=== PATIENT | female | born 2000 | race African-American/Black ===

== ENCOUNTER 2022-11-19 14:01 | Emergency (ER) | payer OTHER, SELFPAY ==
--- NOTE | ~2022-11-19 | XR_ITS ---
EXAMINATION: XR CHEST CLINICAL INFORMATION: Chest pain. COMPARISON: None TECHNIQUE: Frontal view of the chest was obtained. FINDINGS: No significant abnormality is noted involving the heart, lungs, mediastinum, bony thorax or soft tissues. XR/XR chest 1V IMPRESSION: Unremarkable examination.
--- NOTE | 2022-11-19 14:08 | ECG_ITS ---
Test Reason : CX PAIN Blood Pressure : / mmHG Vent. Rate : 067 BPM Atrial Rate : 067 BPM P-R Int : 186 ms QRS Dur : 086 ms QT Int : 376 ms P-R-T Axes : 061 079 045 degrees QTc Int : 397 ms Sinus rhythm with marked sinus arrhythmia Otherwise normal ECG No previous ECGs available Referred By: Generic ED Physician Electronically Signed By:CAROLE HICKS
[2022-11-19 16:23] VITALS: BP 116/66; PULSE 62; RESP 18; TEMP 37.1; O2SAT 100; BMI 27.4
--- NOTE | 2022-11-19 16:35 | ED.GENADULT ---
HPI - General Adult General Source: patient <Rito Peraza MD - Last Filed: 11/20/22 06:43> Mode of arrival: ambulatory <Rito Peraza MD - Last Filed: 11/20/22 06:43> Limitations: no limitations <Rito Peraza MD - Last Filed: 11/20/22 06:43> History of Present Illness HPI narrative: Patient otherwise healthy complaining of pain in R 2nd inter costal space since today afternoon increases on palpation and take deep breath no cough or shortness of breath no history of similar pain in the past <Rito Peraza MD - Last Filed: 11/20/22 06:43> Related Data Home medications: Previous Rx's Medication Instructions Recorded ibuprofen 600 mg tablet 600 mg PO Q6H PRN fever or pain 11/19/22 #30 tabs <MINESH Ridley - Last Filed: 11/23/22 20:43> Allergies/adverse reactions: Allergies Allergy/AdvReac Type Severity Reaction Status Date / Time kiwi [KIWI] Allergy Severe ANAPHYLAXIS Unverified 08/01/20 18:58 apple Allergy Anaphylaxis Verified 11/19/22 16:27 <MINESH Ridley - Last Filed: 11/23/22 20:43> Review of Systems Review of Systems: Yes all other systems are reviewed and are negative <Rito Peraza MD - Last Filed: 11/20/22 06:43> [facility] Social History Social History: Social History Advance Directives: No <MINESH Ridley - Last Filed: 11/23/22 20:43> Physical Exam ED Vital Signs: Vital Signs - 24 hr 11/19/22 16:23 11/19/22 19:56 Temperature 98.7 F 98.2 F Pulse Rate 62 70 Respiratory Rate 18 16 Blood Pressure 116/66 113/78 Pulse Oximetry 100 98 Oxygen Delivery Method Room Air Room Air BMI result Body Mass Index 27.4 <MINESH Ridley - Last Filed: 11/23/22 20:43> Vital Signs - 24 hr 11/19/22 16:23 11/19/22 19:56 Temperature 98.7 F 98.2 F Pulse Rate 62 70 Respiratory Rate 18 16 Blood Pressure 116/66 113/78 Pulse Oximetry 100 98 Oxygen Delivery Method Room Air Room Air BMI result Body Mass Index 27.4 <Rito Peraza MD - Last Filed: 11/20/22 06:43> Appearance: Alert. Oriented X3. No acute distress. Eyes: PERRLA, No Nystagmus ENT: Pharynx normal. Oral Mucosa moist Neck: Normal inspection. Neck supple. CVS: Normal heart rate and rhythm. Pulses normal. Respiratory: No respiratory distress. Equal air entry bilateral, no wheezing/rales/rhonchi tender to touch right intercostal space Abdomen: Soft and nontender. Bowel sounds are present, Skin: Skin warm and dry. Normal skin color. Normal skin turgor. Extremities: No lower extremity edema. No calf tenderness Neuro: Oriented X 3. <Rito Peraza MD - Last Filed: 11/20/22 06:43> Course Course Course Narrative: 22-year-old female with no significant medical history is here today for complaining of chest pain. Patient states that she was walking around at work and started to feeling shortness of breath and then chest pain. Patient denies any cold symptoms. Patient states that she suffers from panic attacks. Patient is on sure that this was a panic attack or not. Currently patient does not feel short of breath, however she reports to have reproducible chest pain and reproducible back pain. Patient denies any injuries denies any sickness . Will obtain chest x-ray. EKG was done in triage and it was normal. Patient is hemodynamically stable and will be sent to emergency department waiting room to wait for chest x-ray <MINESH Ridley - Last Filed: 11/23/22 20:43> Medications Administered Discontinued Medications Generic Name Dose Route Start Last Admin Trade Name Freq PRN Reason Stop Dose Admin Ibuprofen 600 mg 11/19/22 21:55 11/19/22 22:27 Ibuprofen 600 Mg Tablet PO 11/19/22 21:56 600 mg ONCE ONE Administration <MINESH Ridley - Last Filed: 11/23/22 20:43> Medications Administered Discontinued Medications Generic Name Dose Route Start Last Admin Trade Name Freq PRN Reason Stop Dose Admin Ibuprofen 600 mg 11/19/22 21:55 11/19/22 22:27 Ibuprofen 600 Mg Tablet PO 11/19/22 21:56 600 mg ONCE ONE Administration <Rito Peraza MD - Last Filed: 11/20/22 06:43> Medical Decision Making Medical Decision Making MDM Narrative: Patient's heart score of 0 local tenderness in right intercostal space, clinically costochondritis will discharge patient home on ibuprofen <Rito Peraza MD - Last Filed: 11/20/22 06:43> Independent Interpretation I performed an independent interpretation of an: EKG <Rito Peraza MD - Last Filed: 11/20/22 06:43> Interpretation: Normal sinus rhythm rate 60 normal intervals normal axis no acute ischemia <Rito Peraza MD - Last Filed: 11/20/22 06:43> Discharge Plan Discharge Clinical Impression: Costochondritis, acute <MINESH Ridley - Last Filed: 11/23/22 20:43> Patient Disposition: Home, Self-Care <MINESH Ridley - Last Filed: 11/23/22 20:43> Instructions: Costochondritis (ED) <MINESH Ridley - Last Filed: 11/23/22 20:43> Additional Instructions: Ibuprofen for pain Get chest pain is not from the heart or lung issues, is from the inflammation of the cartilage <MINESH Ridley - Last Filed: 11/23/22 20:43> Prescriptions: New ibuprofen 600 mg tablet 600 mg PO Q6H PRN (Reason: fever or pain) Qty: 30 0RF <MINESH Ridley - Last Filed: 11/23/22 20:43> Stand Alone Forms: Work/School Release <MINESH Ridley - Last Filed: 11/23/22 20:43> Interventions: ED Discharge Assessment Last Done: 11/19/22 22:34 <MINESH Ridley - Last Filed: 11/23/22 20:43> Discharge Date/Time: 11/19/22 22:38 <MINESH Ridley - Last Filed: 11/23/22 20:43>
--- NOTE | 2022-11-19 19:54 | PC.NURSE ---
pt comes in from work, reports mild chest pain more muscular than cardiac. Pt VSS, pt reports no SOB and pain has decreased since arriving
[2022-11-19 19:56] VITALS: BP 113/78; PULSE 70; RESP 16; TEMP 36.8; O2SAT 98
[2022-11-19] MEDS: Ibuprofen 600 MG TABLET PO (22:27)
== END 2022-11-19 22:38 | disposition home or self-care (01) ==
PROVIDERS: Emergency Provider Internal Medicine; PCP Pediatrics
DX: M94.0 Chondrocostal junction syndrome [Tietze] (principal); R07.89 Other chest pain
CPT/HCPCS: 71045; 93005; 99283; 99284